=== PATIENT | male | born 1985 | race Caucasian/White ===

== ENCOUNTER 2023-10-13 06:15 | Emergency (ER) | payer MEDICAID ==
[~2023-10-13] VITALS: Ht 193 cm; Wt 78.0 kg
[2023-10-13] MEDS: LORAZEPAM 2MG/ML INJ IM ONE ×2 (07:50→16:45)
[2023-10-13] MEDS: ZIPRASIDONE MESYLATE 20MG/VIAL IM ONE (07:51)
[2023-10-13] MEDS: DIPHENHYDRAMINE 50MG/ML VIAL IM ONE (07:51)
[2023-10-13 08:09] LABS: ALANINE AMINOTRANSFERASE 24 IU/L (10-49); ALBUMIN 4.3 g/dL (3.2-4.8); ASPARTATE AMINOTRANSFERASE 49 IU/L (<34); BILIRUBIN TOTAL 0.7 mg/dL (0.1-1.0); CALCIUM 9.3 mg/dL (8.7-10.4); CARBON DIOXIDE 27 mEq/L (21-32); CHLORIDE 104 mEq/L (98-107); CREATININE 0.9 mg/dL (0.6-1.3); ETHANOL BLOOD < 10 mg/dL (<10); GLUCOSE 127 mg/dL (70-105); POTASSIUM 3.9 mEq/L (3.5-5.1); PROTEIN TOTAL 7.2 g/dL (6.0-8.3); SODIUM 138 mEq/L (136-145); UREA NITROGEN BLOOD 11 mg/dL (9-23)
[2023-10-13 08:10] LABS: BASOPHILS % 0.7 % (0.0-2.0); EOSINOPHILS % 0.2 % (0.0-5.0); HEMATOCRIT. 40.1 % (42.0-52.0); HEMOGLOBIN. 13.5 g/dL (14.0-18.0); LYMPHOCYTES % 10.1 % (20.0-50.0); MEAN CORPUSCULAR HEMOGLOBIN 31.2 pg (28.0-32.0); MEAN CORPUSCULAR HGB CONC 33.6 g/dL (31.0-37.0); MEAN PLATELET VOLUME 8.2 fl (7.4-10.4); MONOCYTES % 7.2 % (2.0-8.0); NEUTROPHILS % 81.8 % (40.0-76.0); PLATELET 280 x1000/uL (130-400); RED BLOOD CELL COUNT 4.32 mill/uL (4.7-6.1); RED CELL DISTRIBUTION WIDTH 12.7 % (11.6-14.6); WHITE BLOOD COUNT 10.4 x1000/uL (4.5-11.0)
[2023-10-13 08:11] LABS: TROPONIN I HIGH SENSITIVITY < 4 ng/L (3.0-53)
[2023-10-13 14:22] LABS: *AMPHETAMINES SCREEN URINE NEGATIVE (NEGATIVE); *BARBITURATES SCREEN URINE NEGATIVE (NEGATIVE); *BENZODIAZEPINES SCREEN URINE NEGATIVE (NEGATIVE); *COCAINE SCREEN URINE NEGATIVE (NEGATIVE); CANNABINOID URINE SCREEN NEGATIVE (NEGATIVE); ECSTASY MDMA SCREEN URINE NEGATIVE (NEGATIVE); METHADONE URINE SCREEN Neg (NEGATIVE); OPIATES URINE SCREEN NEGATIVE (NEGATIVE); PHENCYCLIDINE URINE SCREEN NEGATIVE (NEGATIVE)
[2023-10-13] MEDS: OLANZAPINE 10 MG/VIAL IM ONE (16:45)
[2023-10-13 19:17] VITALS: O2SAT 100
[2023-10-13] MEDS: MIDAZOLAM HCL 2 MG/2 ML VIAL IM ONE (19:17)
[2023-10-14] MEDS: ZIPRASIDONE MESYLATE 20MG/VIAL IM PRN (04:36)
[2023-10-14] MEDS: LORAZEPAM 2MG/ML INJ IM STA (04:56)
[2023-10-14] MEDS: DIPHENHYDRAMINE 50MG/ML VIAL IM STA (04:56)
[2023-10-14] MEDS: HALOPERIDOL LACTATE 5MG/ML VIAL IM STA (04:57)
[2023-10-14] MEDS ORDERED: OLANZAPINE 10 MG/VIAL IM ONE (13:56)
[2023-10-14] MEDS: OLANZAPINE 10 MG/VIAL IM ONE (14:13)
[2023-10-14 16:00] VITALS: BP 121/83; PULSE 99; RESP 18; TEMP 98
[2023-10-14] MEDS ORDERED: OLANZAPINE 10MG TABLET PO SCH (17:00)
== END 2023-10-14 17:01 ==
LOC: ER 06:15
DX: F30.9 Manic episode, unspecified (principal); F20.9 Schizophrenia, unspecified; Z20.822 Contact with and (suspected) exposure to COVID-19
CPT/HCPCS: 80053; 80305; 80320; 85025; 84484; 36415; 96372 ×2; 99291; 87426; J3490 ×2; J1200 ×2; J2060 ×2; J2250; J3486 ×2; J1630; Z7610 ×4; G0480